=== PATIENT | female | born 1975 | race Hispanic/Latino ===

== ENCOUNTER 2020-11-23 06:45 | Day surgery (SDC) | payer MEDICAID ==
[2020-11-16 13:17] LABS: BASOPHILS % (AUTO) 1.5 % (0.0-5.0); EOSINOPHILS % (AUTO) 2.7 % (0.0-8.0); HEMATOCRIT 36.2 % (36-48); LYMPHOCYTES % (AUTO) 34.2 % (21.0-51.0); MEAN CORPUSCULAR HEMOGLOBIN 23.2 pg (27.0-33.0); MEAN CORPUSCULAR HGB CONC 29.3 g/dL (32.0-36.0); MEAN CORPUSCULAR VOLUME 79.4 fL (79-99); MONOCYTES % (AUTO) 7.7 % (3.0-13.0); NEUTROPHILS % (AUTO) 53.5 % (40.0-77.0); PLATELET COUNT (AUTO) 303 K/uL (130-400); RED BLOOD CELL COUNT(AUTO) 4.56 MIL/uL (4.00-5.50); RED CELL DISTRIBUTION WIDTH 17.1 % (11.0-15.5); WHITE BLOOD COUNT (AUTO) 4.8 K/uL (4.8-10.8)
[2020-11-22 11:46] VITALS: BP 125/76
[~2020-11-23] VITALS: Ht 170.2 cm; Wt 97.6 kg
[2020-11-23] VITALS (17 sets, daily range): BP systolic 101–128; BP diastolic 63–74
[2020-11-23] MEDS ORDERED: CALDOLOR 800MG+NS 250ML 250 ML IV ONE (07:15)
[2020-11-23] MEDS ORDERED: LACTATED RINGERS 1000ML 1,000 ML IV ONE (07:16)
[2020-11-23] MEDS ORDERED: BUPIVACAINE/PF 0.25% 30ML VIAL IJ ONE (07:22)
[2020-11-23] MEDS ORDERED: GLYCOPYRROLATE 1 MG/5 ML SYRINGE ONE (07:23)
[2020-11-23] MEDS ORDERED: SUCCINYLCHOLINE CHLORIDE 20 MG/ML 10 ML VIAL ONE (07:23)
[2020-11-23] MEDS ORDERED: NEOSTIGMINE 5MG/5ML SYR IV ONE (07:23)
[2020-11-23] MEDS ORDERED: ONDANSETRON HCL 4 MG/2 ML VIAL ONE (07:23)
[2020-11-23] MEDS ORDERED: LIDOCAINE PF 2% 5ML ABBOJECT ONE (07:23)
[2020-11-23] MEDS ORDERED: MEPERIDINE-PF 25 MG/ML SYG ONE (07:24)
[2020-11-23] MEDS ORDERED: ROCURONIUM 10MG/1ML SYR 10 MG/ML ML ONE (07:24)
[2020-11-23] MEDS ORDERED: FENTANYL CITRATE PF 50 MCG/1 ML 2ML VIAL ONE (07:24)
[2020-11-23] MEDS ORDERED: PROPOFOL 10 MG/ML 20ML VIAL IV ONE (07:24)
[2020-11-23] MEDS: CEFAZOLIN SODIUM 1 GM VIAL ONE ×2 (07:43→08:50)
== END 2020-11-23 11:00 | disposition home or self-care (01) ==
LOC: DAH 06:45
PROVIDERS: ATTEND Obstetrics & Gynecology
DX: Z30.2 Encounter for sterilization (principal); Z20.828 Contact with and (suspected) exposure to other viral communicable diseases; Z79.899 Other long term (current) drug therapy
CPT/HCPCS: 36415 ×2; 58670; 84703; 85025; 86850 ×2; 86900 ×2; 86901 ×2; A4215; A4221; A4222; A4223; A4351; A4510; A4663; A6260; C1769 ×2; C9803; G0168; J0330; J0690; J1741; J2001; J2175; J2405; J2704; J2710; J3010; J3490 ×2; J7030; J7120; U0003

== ENCOUNTER 2021-10-15 06:53 | Day surgery (SDC) | payer OTHER, MEDICAID ==
[2021-10-08 11:27] LABS: APPEARANCE,URINE CLEAR (CLEAR); BILIRUBIN,URINE NEGATIVE (NEGATIVE); COLOR,URINE YELLOW (YELLOW); GLUCOSE, URINE (UA) NEGATIVE (NEGATIVE); KETONES,URINE NEGATIVE (NEGATIVE); LEUKOCYTE ESTERASE ,URINE SMALL (NEGATIVE); NITRATE,URINE NEGATIVE (NEGATIVE); OCCULT BLOOD,URINE LARGE (NEGATIVE); PH,URINE 7.5 (5.0-8.0); PROTEIN,URINE NEGATIVE (NEGATIVE); UROBILINOGEN,URINE 0.2 mg/dL (0.2-1.0)
[2021-10-08 11:29] LABS: BASOPHILS % (AUTO) 0.5 % (0.0-5.0); EOSINOPHILS % (AUTO) 0.8 % (0.0-8.0); HEMATOCRIT 35.3 % (36-48); LYMPHOCYTES % (AUTO) 16.2 % (21.0-51.0); MEAN CORPUSCULAR HEMOGLOBIN 23.2 pg (27.0-33.0); MEAN CORPUSCULAR VOLUME 77.4 fL (79-99); MONOCYTES % (AUTO) 3.4 % (3.0-13.0); NEUTROPHILS % (AUTO) 78.7 % (40.0-77.0); PLATELET COUNT (AUTO) 287 K/uL (130-400); RED BLOOD CELL COUNT(AUTO) 4.56 MIL/uL (4.00-5.50); RED CELL DISTRIBUTION WIDTH 17.1 % (11.0-15.5); WHITE BLOOD COUNT (AUTO) 12.3 K/uL (4.8-10.8)
[2021-10-08 11:31] LABS: INR 1.04 (0.85-1.15); PROTHROMBIN TIME 11.3 SEC (9.6-11.6)
[2021-10-08 11:32] LABS: PARTIAL THROMBOPLASTIN TIME 31.9 SEC (26.3-35.5)
[2021-10-08 11:39] LABS: BACTERIA,URINE Rare /HPF (None Seen); SQUAMOUS EPITHELIAL CELL,UR Few /HPF (0-2); WBC,URINE 0-1 /HPF (0-1)
[2021-10-12 08:33] VITALS: BP 150/80
[2021-10-15] VITALS (22 sets, daily range): BP systolic 107–130; BP diastolic 53–95
[~2021-10-15] VITALS: Ht 170.2 cm; Wt 99.2 kg
[2021-10-15] MEDS: CEFAZOLIN SODIUM 1 GM VIAL IVP SCH ×2 (06:00→09:00)
[~2021-10-15 06:53] MED LIST: 0.9%NACL 1000ML 1,000 ML IV SCH; OMEP40CA21 PO
[2021-10-15] MEDS ORDERED: LACTATED RINGERS 1000ML 1,000 ML IV ONE (07:30)
[2021-10-15] MEDS ORDERED: FAMOTIDINE 20MG VIAL IV ONE (07:31)
[2021-10-15] MEDS ORDERED: HYDROMORPHONE 1 MG INJ ONE ×2 (07:32→10:16)
[2021-10-15] MEDS ORDERED: ROCURONIUM 10MG/1ML SYR 10 MG/ML ML ONE (07:38)
[2021-10-15] MEDS ORDERED: LIDOCAINE PF 100MG/5ML (2%) SYRINGE 5ML ONE (07:38)
[2021-10-15] MEDS ORDERED: PROPOFOL 10 MG/ML 20ML VIAL IV ONE (07:38)
[2021-10-15] MEDS ORDERED: GLYCOPYRROLATE 1 MG/5 ML SYRINGE ONE (07:38)
[2021-10-15] MEDS ORDERED: FENTANYL CITRATE PF 50 MCG/1 ML 2ML VIAL ONE (07:39)
[2021-10-15] MEDS ORDERED: PHENYLEPHRINE HCL 10 MG/ML 1ML VIAL IV ONE (07:42)
[2021-10-15] MEDS ORDERED: ONDANSETRON 4MG INJ ONE (08:44)
[2021-10-15] MEDS ORDERED: BUPIVACAINE/PF 0.5% 30ML VIAL ONE (08:58)
[2021-10-15] MEDS ORDERED: NEOSTIGMINE 5MG/5ML SYR IV ONE (09:27)
== END 2021-10-15 12:30 | disposition home or self-care (01) ==
LOC: DAH 06:53
PROVIDERS: ATTEND Student in an Organized Health Care Education/Training Program
DX: K80.20 Calculus of gallbladder without cholecystitis without obstruction (principal); Z20.822 Contact with and (suspected) exposure to COVID-19; E78.5 Hyperlipidemia, unspecified; D64.9 Anemia, unspecified; K21.9 Gastro-esophageal reflux disease without esophagitis; E66.9 Obesity, unspecified; F41.9 Anxiety disorder, unspecified; Z98.891 History of uterine scar from previous surgery; Z98.51 Tubal ligation status; Z82.49 Family history of ischemic heart disease and other diseases of the circulatory system; Z83.3 Family history of diabetes mellitus; Z79.01 Long term (current) use of anticoagulants; Z98.890 Other specified postprocedural states; Z68.34 Body mass index [BMI] 34.0-34.9, adult
CPT/HCPCS: 36415; 47562; 81001; 85025; 85610; 85730; 87635; A4215; A4221; A4222; A4223; A4600; A4649 ×2; A4663; A6206; A6207; A6260; C1769 ×3; C9803; J0690; J1170 ×2; J2001; J2370; J2405; J2704; J2710; J3010; J3490 ×3; J7030; J7120

== ENCOUNTER → 2022-11-12 | Outpatient (CLI) | payer OTHER, MEDICAID ==
[~2022-11-12] MED LIST changes: -0.9%NACL 1000ML 1,000 ML IV SCH
== END | disposition home or self-care (01) ==
LOC: RAH 09:05
PROVIDERS: ATTEND Internal Medicine Gastroenterology
DX: K44.9 Diaphragmatic hernia without obstruction or gangrene (principal); K21.00 Gastro-esophageal reflux disease with esophagitis, without bleeding; Z90.49 Acquired absence of other specified parts of digestive tract
CPT/HCPCS: 74240

== ENCOUNTER 2023-02-06 09:29 | Observation (INO) | payer OTHER, MEDICAID ==
[2023-02-04 14:07] VITALS: BP 124/75; PULSE 75; RESP 18
[2023-02-04 14:20] LABS: BASOPHILS % (AUTO) 0.9 % (0.0-5.0); EOSINOPHILS % (AUTO) 1.1 % (0.0-8.0); LYMPHOCYTES % (AUTO) 28.1 % (21.0-51.0); MEAN CORPUSCULAR HEMOGLOBIN 19.7 pg (27.0-33.0); MEAN CORPUSCULAR HGB CONC 28.2 g/dL (32.0-36.0); MEAN CORPUSCULAR VOLUME 69.8 fL (79-99); MONOCYTES % (AUTO) 5.7 % (3.0-13.0); PLATELET COUNT (AUTO) 310 K/uL (130-400); RED BLOOD CELL COUNT(AUTO) 4.73 MIL/uL (4.00-5.50); RED CELL DISTRIBUTION WIDTH 21.5 % (11.0-15.5); WHITE BLOOD COUNT (AUTO) 4.4 K/uL (4.8-10.8)
[2023-02-04 14:44] LABS: CREATININE 0.8 mg/dL (0.5-1.5); POTASSIUM 3.7 mmol/L (3.5-5.1)
[~2023-02-06] VITALS: Ht 170.2 cm; Wt 103.7 kg
[2023-02-06] VITALS (24 sets, daily range): BP systolic 105–152; BP diastolic 59–80; PULSE 68–89; RESP 11–20; O2SAT 97–100
[~2023-02-06 09:29] MED LIST changes: +IRON INFUSION IV; +SEMA0.253 SQ
[2023-02-06] MEDS ORDERED: CEFAZOLIN SODIUM 1 GM VIAL ONE (09:42)
[2023-02-06] MEDS ORDERED: LACTATED RINGERS 1000ML 1,000 ML IV ONE (09:42)
[2023-02-06] MEDS ORDERED: BUPIVACAINE/PF 0.25% 30ML VIAL IJ ONE (11:34)
[2023-02-06] MEDS ORDERED: CEFAZOLIN SODIUM 3 GM VIAL IVPB ONE (11:40)
[2023-02-06] MEDS ORDERED: PROPOFOL 10 MG/ML 20ML VIAL IV ONE (11:47)
[2023-02-06] MEDS ORDERED: SUCCINYLCHOLINE 200MG/10ML SYR ONE (11:47)
[2023-02-06] MEDS ORDERED: LIDOCAINE PF 100MG/5ML (2%) SYRINGE 5ML ONE (11:47)
[2023-02-06] MEDS ORDERED: FENTANYL CITRATE PF 50 MCG/1 ML 5ML AMP IV ONE (11:48)
[2023-02-06] MEDS ORDERED: ROCURONIUM 10MG/1ML SYR 10 MG/ML ML ONE (11:48)
[2023-02-06] MEDS ORDERED: MIDAZOLAM HCL 1 MG/ML 2ML VIAL ONE (11:48)
[2023-02-06] MEDS ORDERED: NEOSTIGMINE 5MG/5ML SYR IV ONE (13:59)
[2023-02-06] MEDS ORDERED: GLYCOPYRROLATE 1 MG/5 ML SYRINGE ONE (13:59)
[2023-02-06] MEDS ORDERED: 1/2NS+20MEQ KCL/1000ML 1,000 ML IV SCH (14:00)
[2023-02-06] MEDS ORDERED: HYDROCODONE/ACETAMINOPHEN 7.5/325 MG 15 ML UDCUP PO PRN (14:00)
[2023-02-06] MEDS ORDERED: ONDANSETRON 4MG INJ IVP PRN (14:00)
[2023-02-06] MEDS ORDERED: MORPHINE 4 MG SYG IVP PRN (14:00)
[2023-02-06] MEDS: ENOXAPARIN SODIUM 30 MG/0.3 ML SQ SCH (14:00)
[2023-02-06] MEDS ORDERED: KETOROLAC 30MG VIAL (30MG/ML) IV PRN (14:00)
[2023-02-06] MEDS ORDERED: PROCHLORPERAZINE 10MG/2ML INJ IV PRN (14:00)
[2023-02-06] MEDS ORDERED: ONDANSETRON 4MG INJ ONE (14:04)
[2023-02-06] MEDS ORDERED: MEPERIDINE-PF 25 MG/ML SYG ONE ×2 (14:15→14:42)
[2023-02-07] VITALS: BP 108/64; PULSE 81; RESP 19
[2023-02-07] MEDS: ENOXAPARIN SODIUM 30 MG/0.3 ML SQ SCH ×2 (02:07→14:43)
[2023-02-07 04:00] VITALS: BP 121/70; PULSE 98; RESP 20
[2023-02-07 08:00] VITALS: BP 134/80; PULSE 83; RESP 18
[2023-02-07 09:00] VITALS: O2SAT 97
[2023-02-07] MEDS ORDERED: ACETAMINOPHEN 325 MG TAB PO PRN (09:00)
[2023-02-07 12:00] VITALS: BP 112/64; PULSE 83; RESP 18
[2023-02-07 16:00] VITALS: BP 119/69; PULSE 81; RESP 18
== END 2023-02-07 18:30 | disposition home or self-care (01) ==
LOC: DAH 09:29 → DAHIP 09:30 → 3CH 15:30
PROVIDERS: ADMIT Surgery; ATTEND Surgery
DX: K44.9 Diaphragmatic hernia without obstruction or gangrene (principal); Z20.822 Contact with and (suspected) exposure to COVID-19; K21.00 Gastro-esophageal reflux disease with esophagitis, without bleeding; Z79.899 Other long term (current) drug therapy; Z98.890 Other specified postprocedural states
CPT/HCPCS: 80048; 85025; 86850 ×2; 86900 ×2; 86901 ×2; 87426; 81025; 36415 ×2; 43282; 43235; 96372; A6260; G0378 ×27; A4663; J7030; A4215 ×2; J3480; J0690 ×2; J7120; J3010; J0330; J3490 ×2; J2710; J2001; J1650 ×2; J2250; J2704; J2405 ×2; J1885; J2175 ×2; G0168; C1781; A4223; A4222; A4221; A4600